=== PATIENT | male | born 1960 | race Caucasian/White ===

== ENCOUNTER 2018-10-07 15:01 | Outpatient (REF) | payer OTHER, SELFPAY ==
[2018-10-07 21:28] LABS: HCT 39.6 % (40.0-50.0); HGB 13.6 g/dL (13.5-17.5); Mean Corp. HGB Concentration 34.3 g/dL (32.0-36.0); Mean Corpuscular Volume 87.2 fL (80-95); Mean Platelet Volume 10.3 fL (8.0-11.0); Platelet Count 320 x1000/uL (130-400); RBC 4.54 m/cumm (4.50-6.00); RBC Distribution Width 12.6 % (11.8-14.1); White Blood Cell Count 10.36 k/cumm (4.4-10.8)
[2018-10-07 21:48] LABS: ALT 26 U/L (12-78); AST 12 U/L (15-37); Albumin 4.1 g/dL (3.4-5.0); Alkaline Phosphatase 77 U/L (46-116); Anion Gap 9.9 mmol/L (3-11); BUN 16 mg/dL (7-18); Bilirubin, Total 0.2 mg/dL (0.2-1.0); CO2 27.1 mmol/L (21.0-32.0); CREATININE 0.86 mg/dL (0.70-1.30); Calcium 9.3 mg/dL (8.5-10.1); Chloride 103 mmol/L (98-107); Cholesterol 169 mg/dL (50-200); Glucose 108 mg/dL (70-100); HDL Cholesterol 38 mg/dL (40-60); LDL CHOLESTEROL 113 mg/dL (<100); Magnesium 1.9 mg/dL (1.8-2.4); Potassium 4.2 mmol/L (3.5-5.1); Sodium 140 mmol/L (136-145); Total Protein 6.9 g/dL (6.4-8.2); Triglyceride 80 mg/dL (30-150)
== END 2018-10-07 15:21 ==
LOC: NCHCN 15:01
PROVIDERS: PCP Specialist/Technologist Athletic Trainer; Visit Provider Specialist/Technologist Athletic Trainer
DX: Z00.00 Encounter for general adult medical examination without abnormal findings (principal); Z13.228 Encounter for screening for other metabolic disorders; Z13.220 Encounter for screening for lipoid disorders; Z13.0 Encounter for screening for diseases of the blood and blood-forming organs and certain disorders involving the immune mechanism
CPT/HCPCS: 80053; 80061; 83721; 85027; 83735

== ENCOUNTER 2019-12-12 17:22 | Outpatient (REF) | payer BC, SELFPAY ==
[2019-12-12 20:26] LABS: Abs Immature Grans 0.03 k/cumm (0.0-0.09); Absolute Basophil Count 0.09 k/cumm (0.0-0.2); Absolute Eosinophil Count 0.45 k/cumm (0.0-0.7); Absolute Lymphocyte Count 2.92 k/cumm (1.2-3.4); Absolute Monocyte Count 0.61 k/cumm (0.11-0.7); Absolute Neutrophil Count 5.52 k/cumm (1.2-6.7); Basophils % 0.9; Eosinophils % 4.7; HCT 39.9 % (40.0-50.0); HGB 13.8 g/dL (13.5-17.5); Immature Grans % 0.3 %; Lymphocytes % 30.4; Mean Corp. HGB Concentration 34.6 g/dL (32.0-36.0); Mean Corpuscular Hemoglobin 30.6 pg (27.0-33.0); Mean Corpuscular Volume 88.5 fL (80-95); Mean Platelet Volume 10.4 fL (8.0-11.0); Monocytes % 6.3; Neutrophils % 57.4; Platelet Count 418 x1000/uL (130-400); RBC 4.51 m/cumm (4.50-6.00); RBC Distribution Width 12.4 % (11.8-14.1); White Blood Cell Count 9.62 k/cumm (4.4-10.8)
[2019-12-12 20:49] LABS: ALT 17 U/L (16-63); AST 15 U/L (15-37); Albumin 4.4 g/dL (3.4-5.0); Alkaline Phosphatase 61 U/L (46-116); Anion Gap 11.8 mmol/L (3-11); BUN 15 mg/dL (7-18); Bilirubin, Total 0.4 mg/dL (0.2-1.0); CO2 24.2 mmol/L (21.0-32.0); CREATININE 0.92 mg/dL (0.70-1.30); Calcium 9.4 mg/dL (8.5-10.1); Chloride 103 mmol/L (98-107); Glucose 94 mg/dL (74-106); Potassium 4.1 mmol/L (3.5-5.1); Sodium 139 mmol/L (136-145); TSH (W/Ref FT4) 2.38 uIU/mL (0.36-3.74)
[2019-12-12 23:53] LABS: Vitamin D 25 Total 41.8 ng/ml (30-100)
[2019-12-14 09:16] LABS: PSA, Screening 3.1 ng/mL (0.0-4.5)
== END 2019-12-12 17:42 ==
LOC: NCHCN 17:22
PROVIDERS: PCP Nurse Practitioner Psychiatric/Mental Health; Visit Provider Nurse Practitioner Psychiatric/Mental Health
DX: R73.03 Prediabetes (principal); R53.83 Other fatigue; Z12.5 Encounter for screening for malignant neoplasm of prostate; N40.0 Benign prostatic hyperplasia without lower urinary tract symptoms; Z00.00 Encounter for general adult medical examination without abnormal findings
CPT/HCPCS: 80053; 82306; 84153; 84443; 85025

== ENCOUNTER 2021-05-27 18:15 | Outpatient (REF) | payer BC, SELFPAY ==
[2021-05-27 20:30] LABS: BUN 10 mg/dL (7-18); CREATININE 0.9 mg/dL (0.70-1.30); Calcium 9.2 mg/dL (8.5-10.1); Chloride 106 mmol/L (98-107); Glucose 94 mg/dL (74-106); Potassium 4.2 mmol/L (3.5-5.1); Sodium 141 mmol/L (136-145)
[2021-05-27 20:37] LABS: Hemoglobin A1C 5.8 % (<5.7)
== END 2021-05-27 18:16 | disposition home or self-care (01) ==
LOC: NCHCN 18:15
PROVIDERS: PCP Nurse Practitioner Psychiatric/Mental Health; Visit Provider Nurse Practitioner Family
DX: R73.03 Prediabetes (principal); I10 Essential (primary) hypertension
CPT/HCPCS: 80048; 83036

== ENCOUNTER 2022-03-31 17:12 | Outpatient (REF) | payer BC, SELFPAY ==
[2022-03-31 19:12] LABS: Hemoglobin A1C 5.9 % (<5.7)
[2022-03-31 19:13] LABS: ALT 17 U/L (16-63); AST 15 U/L (15-37); Albumin 4.1 g/dL (3.4-5.0); Alkaline Phosphatase 54 U/L (46-116); BUN 13 mg/dL (7-18); Bilirubin, Total 0.5 mg/dL (0.2-1.0); CREATININE 0.9 mg/dL (0.70-1.30); Calcium 9.6 mg/dL (8.5-10.1); Chloride 105 mmol/L (98-107); Estimated GFR 96.57 (mL/min/1.73m2); Glucose 98 mg/dL (74-106); Potassium 4.5 mmol/L (3.5-5.1); Sodium 140 mmol/L (136-145)
[2022-04-01 18:22] LABS: PSA, Screening 3.3 ng/mL (<=4.5)
== END 2022-03-31 17:13 | disposition home or self-care (01) ==
LOC: NCHCN 17:12
PROVIDERS: PCP Nurse Practitioner Psychiatric/Mental Health; Visit Provider Nurse Practitioner Family
DX: Z00.00 Encounter for general adult medical examination without abnormal findings (principal); E78.1 Pure hyperglyceridemia; R73.03 Prediabetes; Z12.5 Encounter for screening for malignant neoplasm of prostate
CPT/HCPCS: 80053; 83721; 84153; 83036; 83718

== ENCOUNTER 2023-04-27 16:33 | Outpatient (REF) | payer BC, SELFPAY ==
[2023-04-27 18:47] LABS: Abs Immature Grans 0.02 10^3/uL (0.0-0.06); Absolute Basophil Count 0.11 10^3/uL (0.0-0.2); Absolute Lymphocyte Count 3.14 10^3/uL (1.2-3.4); Absolute Monocyte Count 0.57 10^3/uL (0.1-0.8); Absolute Neutrophil Count 3.91 10^3/uL (1.2-6.7); Basophils % 1.3; Eosinophils % 6.1; HCT 38.3 % (40.0-50.0); Immature Grans % 0.2; Lymphocytes % 38.1; MCH 30.1 pg (27.0-33.0); MCHC 33.9 % (32.0-36.0); MCV 89 fL (80-95); MPV 9.8 fL (8.0-11.0); Monocytes % 6.9; Neutrophils % 47.4; Platelet Count 337 10^3/uL (130-400); RBC 4.32 10^6/uL (4.36-5.78); RDW 12.3 % (11.8-14.1); RDW-SD 40.9 fL; WBC 8.25 10^3/uL (4.4-10.8)
[2023-04-27 19:08] LABS: Hemoglobin A1C 5.7 % (<5.7)
[2023-04-27 20:01] LABS: ALT 15 U/L (16-63); AST 13 U/L (15-37); Albumin 3.9 g/dL (3.4-5.0); Alkaline Phosphatase 66 U/L (46-116); Anion Gap 11.4 mmol/L (3-11); BUN 11 mg/dL (7-18); Bilirubin, Total 0.2 mg/dL (0.2-1.0); CO2 24.6 mmol/L (21.0-32.0); CREATININE 0.9 mg/dL (0.70-1.30); Calcium 9.2 mg/dL (8.5-10.1); Calculated LDL 103 mg/dL (<100); Chloride 105 mmol/L (98-107); Cholesterol 175 mg/dL (<200); Estimated GFR 95.97 (mL/min/1.73m2); Glucose 103 mg/dL (74-106); HDL Cholesterol 48 mg/dL (40-60); Potassium 4.1 mmol/L (3.5-5.1); Sodium 141 mmol/L (136-145); Total Protein 6.6 g/dL (6.4-8.2); Triglyceride 123 mg/dL (<150)
[2023-04-27 20:11] LABS: Uric Acid 5.2 mg/dL (3.5-7.2)
[2023-04-28 19:08] LABS: PSA, Screening 3.3 ng/mL (<=4.5)
== END 2023-04-27 16:34 | disposition home or self-care (01) ==
LOC: NCHCN 16:33
PROVIDERS: PCP Nurse Practitioner Psychiatric/Mental Health; Visit Provider Nurse Practitioner Family
DX: I10 Essential (primary) hypertension (principal); R73.03 Prediabetes; Z86.39 Personal history of other endocrine, nutritional and metabolic disease; Z12.5 Encounter for screening for malignant neoplasm of prostate
CPT/HCPCS: 80053; 80061; 84153; 83036; 84550; 85025

== ENCOUNTER 2023-07-16 18:15 | Outpatient (REF) | payer BC, SELFPAY ==
[2023-07-16 18:55] LABS: HCT 40.2 % (40.0-50.0); HGB 13.9 g/dL (13.5-17.5); MCHC 34.6 % (32.0-36.0); MCV 87 fL (80-95); MPV 9.7 fL (8.0-11.0); Platelet Count 420 10^3/uL (130-400); RBC 4.64 10^6/uL (4.36-5.78); RDW 12.2 % (11.8-14.1); RDW-SD 38.8 fL; WBC 8.79 10^3/uL (4.4-10.8)
[2023-07-16 18:57] LABS: ESR 2 mm/hr (0-20)
[2023-07-16 19:11] LABS: C-Reactive Protein 0.06 mg/dL (0.0-0.3)
--- OUTSIDE RECORDS SUMMARY | 2023-07-17 13:26 | XMS_ITS | Continuity of Care Document ---
Author Name Unknown Organization [facility] Address [address] [place] [address] Care Team Providers Care Contact Lens Molder Name Role Phone GARRET QUIJANO Primary Care Physician [phone] Encounter [facility] NBR [id number] Date(s): 09/22/22 - 09/22/22 [facility] [address] [place], [place] [address] Encounter Diagnosis Inguinal hernia, right(Discharge Diagnosis) - 09/22/22 Discharge Disposition: Home or Self Care Attending Physician: David Roblero MD Allergies, Adverse Reactions, Alerts Substance Reaction Severity Status Concerta Moderate Active Assessment and Plan Future Appointments Functional Status 09/22/22 Living Environment Home Environment No qualifying data available Other exposure to Infectious Disease Non e Medications aspirin 81 mg oral tablet, chewable 81 mg = 1 tab, Chewed, Daily, 0 Refill(s) Start Date: 04/30/22 Status: Ordered citalopram 20 mg oral tablet 20 mg = 1 tab, Oral, Daily, # 30 tab, 0 Refill(s) Start Date: 09/18/22 Status: Ordered gabapentin 100 mg oral capsule 100 mg = 1 cap, Oral, TID, TAKE 1 CAPSULE BY MOUTH THREE TIMES DAILY Start Date: 04/30/22 Status: Ordered gemfibrozil 600 mg oral tablet 600 mg = 1 tab, Oral, every evening, # 180 tab, 0 Refill(s) Start Date: 04/30/22 Status: Ordered ibuprofen 200 mg oral capsule 200 mg = 1 cap, Oral, BID, 0 Refill(s) Start Date: 09/18/22 Status: Ordered losartan 100 mg oral tablet 100 mg = 1 tab, Oral, Daily, TAKE 1 TABLET BY MOUTH EVERY DAY Start Date: 04/30/22 Status: Ordered metFORMIN 750 mg oral tablet, extended release 750 mg = 1 tab, Oral, Daily, # 30 tab, 0 Refill(s) Start Date: 04/30/22 Status: Ordered Metoprolol Tartrate 25 mg oral tablet 25 mg = 1 tab, Oral, BID, # 180 tab, 0 Refill(s) Start Date: 04/30/22 Status: Ordered mirtazapine 45 mg oral tablet 45 mg = 1 tab, Oral, every night at bedtime, TAKE 1 TABLET BY MOUTH AT BEDTIME Start Date: 04/30/22 Status: Ordered pravastatin 10 mg oral tablet 10 mg = 1 tab, Oral, every night at bedtime, # 30 tab, 0 Refill(s) Start Date: 04/30/22 Status: Ordered QUEtiapine 50 mg oral tablet 50 mg = 1 tab, Oral, TID, TAKE 1 TABLET BY MOUTH THREE TIMES DAILY Start Date: 04/30/22 Status: Ordered Problem List Condition Confirmation Course Effective Dates Status Health Status Informant Alcohol abuse Confirmed Active Anxiety disorder Confirmed Active Multiple nevi Confirmed Active BPH (benign prostatic hyperplasia) Confirmed Active Bipolar 1 disorder Confirmed Active Chronic low back pain Confirmed Active CAD (coronary artery disease) Confirmed Active Family history of diabetes mellitus Confirmed Active Hx of gout Confirmed Active Hemoptysis Confirmed Active Hip pain, left Confirmed Active Hypertension Confirmed Active Hypertriglyceridemia Confirmed Active Inguinal hernia Confirmed Active Groin pain Confirmed Active Epicondylitis, lateral Confirmed Active Opioid abuse Confirmed Active Prediabetes Confirmed Active Procedures Procedure Date Related Diagnosis Body Site Status History of shoulder surgery Completed Vital Signs Most recent to oldest [Reference Range]: 1 Temperature Temporal Artery [36-38 Deg C ] 35.8 Deg C *LOW* (09/22/22 3:07 PM) Apical Heart Rate [60-100 bpm] 70 bpm (09/22/22 3:07 PM) Blood Pressure [90-140/60-90 mmHg] 112/8 0mmHg (09/22/22 3:07 PM) Weight 88.7 kg (09/22/22 3:07 PM) Weight Measured (lbs) 195.55 lb (09/22/22 3:07 PM) [place] Body Weight Calculated 75.3 kg (09/22/22 3:07 PM) Height 180.34 cm (09/22/22 3:07 PM) Height/Length Measured (inches) 71 inch (09/22/22 3:07 PM) BSA Measured 2.11 m2 (09/22/22 3:07 PM) Body Mass Index 27.27 kg/m2 (09/22/22 3:07 PM) Social History Social History Type Response Tobacco Former tobacco user Tobacco Use:. 1 Sex 1quit 30 years ago Physician Outpatient Note * David Roblero MD: PERFORM Event Display: Office Clinic Note Physician Authored Date: [id number] MARCELL LOPEZ :1960 Age:62 years Sex:Male Visit Date:2022 Primary Care Physician: GARRET QUIJANO Chief Complaint Right inguinal hernia History of Present Illness Marcell Lopez is a a 62-year-old male referred by THERON Tyler for evaluation of a right inguinal hernia. ??Marcell reports that??for the past month he has been experiencing??a dull pain in his right groin that is worse with activities like bending or lifting.?? He has noticed a bulge in hisright groin as well. ??This??increases in size over the course of the day especially with??his physically demanding job at [employer].?? The pain is severe, he has to lie on the floor??or in bed to??help reduce the hernia. ??He has had no??history of incarceration or strangulation. ??He denies??vomiting or obstipation. ??He has mild nausea with this??pain.?? He notes no overlying skin changes. ??He has no history of hernia in the past.?He was seen by his primary care who ordered an ultrasound of his??pelvis which demonstrated the??hernia. ??He has had no prior abdominal surgeries.?? He denies other significant changes in his health. Review of Systems A 10 point review of systems was completed. ??Notable findings are documented above. Physical Exam Vitals & Measurements T:??35.8?C ??(Temporal Artery)?? HR:??70??(Apical)?? BP:??112/80?? SpO2:??98%?? HT:??180.34??cm?? WT:??88.7??kg?? BMI:??27.27?? BSA:??2.11?? General: No acute distress, pleasant, conversant CV: RRR Pulmonary: Regular breathing rate and effort Abdomen: Soft,??nontender, nondistended Right groin??moderate-sized??hernia which is reducible and mildly tender to deep palpation, no overlying skin changes Left groin no palpable mass or impulse on Valsalva.?? Nontender Bilateral testicle exam normal Extremities: Warm, no edema Assessment/Plan Inguinal hernia, right??K40.90 Marcell??Thierry is a 62-year-old male with a symptomatic right inguinal hernia. ??The nature of groin hernias, the potential complications, and the rationale and options for??treatment were reviewed. ??Recommend open right inguinal hernia repair with mesh. ??The risk, benefits, and alternatives to thisoperation were discussed in detail. ??The rationale for the use of mesh was explained.?? The expected postoperative recovery including activity restrictions, return to work, and postoperative pain control were outlined. ??Marcell demonstrated good understanding and agreement with this recommendation.?? He would like to schedule surgery for the next mutually convenient date. Thank you for the opportunity to participate in the care of?Bryant. ??A copy of this consultation will be faxed to THERON Tyler Ordered: Surgical Procedure Booking Request LTTL, 09/22/22 16:09:00 EDT, 10/09/22 10:00:00 EDT, K40.90, Inguinal hernia, right, Outpatient, Open Right Inguinal Herni, Primary Procedure, 90, General, 27, David Roblero MD, DX code: K40.90 Open Right Inguinal Hernia Repair with Mesh CPT Codes: 49... ?? Problem List/Past Medical History Ongoing Alcohol abuse Anxiety disorder Bipolar 1 disorder BPH (benign prostatic hyperplasia) CAD (coronary artery disease) Chronic low back pain Epicondylitis, lateral Family history of diabetes mellitus Groin pain Hemoptysis Hip pain, left Hx of gout Hypertension Hypertriglyceridemia Inguinal hernia Multiple nevi Opioid abuse Prediabetes Historical No qualifying data Procedure/Surgical History ???History of shoulder surgery Medications aspirin 81 mg oral tablet, chewable, 81 mg= 1 tab, Chewed, Daily citalopram 20 mg oral tablet, 20 mg= 1 tab, Oral, Daily gabapentin 100 mg oral capsule, 100 mg= 1 cap, Oral, TID gemfibrozil 600 mg oral tablet, 600 mg= 1 tab, Oral, every evening ibuprofen 200 mg oral capsule, 200 mg= 1 cap, Oral, BID losartan 100 mg oral tablet, 100 mg= 1 tab, Oral, Daily metFORMIN 750 mg oral tablet, extended release, 750 mg= 1 tab, Oral, Daily Metoprolol Tartrate 25 mg oral tablet, 25 mg= 1 tab, Oral, BID mirtazapine 45 mg oral tablet, 45 mg= 1 tab, Oral, every night at bedtime pravastatin 10 mg oral tablet, 10 mg= 1 tab, Oral, every night at bedtime QUEtiapine 50 mg oral tablet, 50 mg= 1 tab, Oral, TID Allergies Concerta Social History Alcohol Current, Beer, Wine, Liquor, 1-2 times per year Electronic Cigarette/Vaping Electronic Cigarette Use: Never. Substance Use Current, Marijuana Tobacco Former tobacco user Tobacco Use:.- Comments: quit 30 years ago Electronically Signed on 09/22/22 04:24 PM David Roblero MD Patient Care team information Care Team Personnel Name: GARRET QUIJANO Position: No Access Member Role: Primary Care Physician Address: Address: [address] [place] [address] [address] [place] [address]- Care Team Related Persons Name: MARCELL LOPEZ Address: Home
--- OUTSIDE RECORDS SUMMARY | 2023-07-17 13:26 | XMS_ITS | Continuity of Care Document ---
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 Name Role Phone GARRET YEBOAH Primary Care Physic tea Encounter [facility] NBR [id number] Date(s): 02/18/23 - 02/18/23 [facility] [address] [place] [address]- [place] Encounter Diagnosis S/P right inguinal hernia repair(Discharge Diagnosis) - 02/18/23 Personal history of other diseases of the digestive system(Discharge Diagnosis) - 02/18/23 Discharge Disposition: Home or Self Care Attending Physician: David Roblero MD Referring Physician: GARRET YEBOAH Allergies, Adverse Reactions, Alerts Substance Reaction Severity Status Concerta High blood pressure Moderate Active Functional Status 02/18/23 Living Environment Home Environment No qualifying data [...] 200 mg = 1 cap, Oral, BID, PRN as needed for pain, 0 Refill(s) Start Date: 09/18/22 Status: Ordered [...] Course Effective Dates Status Health Status Informant Anxiety disorder Confirmed Active Multiple nevi Confirmed Active BPH (benign prostatic hyperplasia) Confirmed Active Bipolar 1 disorder Confirmed Active Chronic low back pain Confirmed Active CAD (coronary artery disease) Confirmed Active Diabetes mellitus Confirmed Active Family history of diabetes mellitus Confirmed Active Hx of gout Confirmed Active Hip pain, left Confirmed Active Hypertension Confirmed Active Hypertriglyceridemia Confirmed Active Inguinal hernia Confirmed Active Groin pain Confirmed Active Epicondylitis, lateral Confirmed Active Procedures Procedure Date Related Diagnosis Body Site Status Repair Hernia Inguinal (Right) 1 01/22/23 Completed Colonoscopy Completed Dupuytren operation Compl eted Finger operation 2 Comple zena History of shoulder surgery Completed 1auto-populated from documented surgical case 25th finger Vital Signs Most recent to oldest [Reference Range]: 1 Temperature Temporal Artery [36-38 Deg C ] 36.4 Deg C (02/18/23 9:03 AM) Apical Heart Rate [60-100 bpm] 78 bpm (02/18/23 9:03 AM) Blood Pressure [90-140/60-90 mmHg] 162/6 4mmHg *HI* (02/18/23 9:03 AM) Weight 88.1 kg (02/18/23 9:03 AM) Weight Measured (lbs) 194.227 lb (02/18/23 9:03 AM) [place] Body Weight Calculated 74.992 kg (02/18/23 9:03 AM) Height 180 cm (02/18/23 9:03 AM) Height/Length Measured (inches) 70.87 in ch (02/18/23 9:03 AM) BSA Measured 2.1 m2 (02/18/23 9:03 AM) Body Mass Index 27.19 kg/m2 (02/18/23 9:03 AM) Social History Social History Type Response Tobacco Former tobacco user Tobacco Use:. 1 Sex 1quit 30 years ago Implantable Device List Procedure Provider Procedure Date Device Type Site Repair, initial inguinal hernia, (younger than 37 weeks gestation at ), performed from up to 50 weeks postconception age, with or without hydrocelectomy; reducible David Roblero MD 01/22/23 Non Biological Groin Device Identifier Serial Number Lot or Batch Number Manufacturing Date Expiration Date Distinct Identification Code MRI Safety Implantable Status Assigning Authority Unknown Unknown [employer] Unknown 03/27/27 Unknown Unknown Active Unkn own Physician Outpatient Note * David Roblero MD: PERFORM Event Display: Office Clinic Note Physician Authored Date: [id number] MARCELL LOPEZ :1960 Age:62 years Sex:Male Visit Date:02/18/2023 Primary Care Physician: GARRET YBEOAH Chief Complaint Right inguinal hernia follow-up History of Present Illness Marcell??Thierry is a 62-year-old male who presents in follow-up 4 weeks s/p open right inguinal hernia repair with mesh.?? Marcell reports no??ongoing pain. ??He has been recovering well postoperatively. ??He has had??no fevers or chills. ??He denies redness or erythema from his incision. ??He has been avoiding heavy lifting as instructed. ??He is back at work at [employer]??on light duty.?? He denies other significant changes in his health. Physical Exam Vitals & Measurements T:??36.4?C ??(Temporal Artery)?? HR:??78??(Apical)?? BP:??162/64?? SpO2:??98%?? HT:??180??cm?? WT:??88.1??kg?? BMI:??27.19?? BSA:??2.1?? General: No acute distress, pleasant, conversant CV: RRR Pulmonary: Regular breathing rate and effort Abdomen: Soft, nondistended, nontender Right groin incision healing well??without erythema or drainage. ??No palpable mass or??impulse on Valsalva Assessment/Plan 1.??S/P right inguinal hernia repair??Z98.890 Marcell Lopez is a 62-year-old male??4 weeks s/p open right inguinal hernia repair with mesh. ??He hasrecovered well postoperatively.?? We discussed slowly resuming his usual activities. ??He may return to work??with a 50 pound weight lifting restriction for the next 2 weeks. ??After which he may resume usual activities without restriction.?? Marcell demonstrated good understanding agreed with these recommendations. ??He can call my office anytime with any further questions or concerns. ??I will send a note over to his employer's??specifying these restrictions. Personal history of other diseases of the digestive system??Z87.19 Problem List/Past Medical History Ongoing Anxiety disorder Bipolar 1 disorder BPH (benign prostatic hyperplasia) CAD (coronary artery disease) Chronic low back pain Diabetes mellitus Epicondylitis, lateral Family history of diabetes mellitus Groin pain Hip pain, left Hx of gout Hypertension Hypertriglyceridemia Inguinal hernia Multiple nevi Historical Alcohol abuse Hemoptysis Opioid abuse Procedure/Surgical History ???Repair Hernia Inguinal (Right) (01/22/2023)???Colonoscopy???Dupuytren operation???Finger operation???History of shoulder surgery Medications aspirin 81 mg oral tablet, chewable, 81 mg= 1 tab, Chewed, Daily citalopram 20 mg oral tablet, 20 mg= 1 tab, Oral, Daily gabapentin 100 mg oral capsule, 100 mg= 1 cap, Oral, TID gemfibrozil 600 mg oral tablet, 600 mg= 1 tab, Oral, every evening ibuprofen 200 mg oral capsule, 200 mg= 1 cap, Oral, BID, PRN losartan 100 mg oral tablet, 100 mg= [...] 50 mg= 1 tab, Oral, TID Allergies Concerta??(High blood pressure) Social History Alcohol Current, Beer, Wine, Liquor, 1-2 times per year Electronic Cigarette/Vaping Electronic Cigarette Use: Never. Substance Use Current, Marijuana, 1-2 times per year Tobacco Former tobacco user Tobacco Use:.- Comments: quit 30 years ago Electronically Signed on 02/18/23 09:59 AM David Roblero MD Patient Care team information Care Team Personnel Name: GARRET YEBOAH Position: No Access Member Role: Primary Care Physician Address: Address: [address] [place] [address] [address] [place] [address]- Care Team Related Persons Name: MARCELL LOPEZ Address: Home
--- OUTSIDE RECORDS SUMMARY | 2023-07-17 13:26 | XMS_ITS | Continuity of Care Document ---
Author Name Unknown Organization [facility] Address [address] [place] [id number] Care Team Providers Care Hat Body Inspector Name Role Phone GARRET YEBOAH Primary Care Physic tea Encounter LTTL_UT FIN NBR [id number] Date(s): 01/22/23 - 01/22/[address] [id number]- Encounter Diagnosis Inguinal hernia, right(Discharge Diagnosis) - 01/22/23 Discharge Disposition: Home f/u Internal Provider Attending Physician: David Roblero MD Admitting Physician: David Roblero MD Referring Physician: GARRET YEBOAH Allergies, Adverse Reactions, Alerts Substance Reaction Severity Status Concerta High blood pressure Moderate Active Assessment and Plan Future Appointments Functional Status 01/22/23 Anti-Embolism Device Activity: Removed Anti-Embolism Device Removal Reason: Dis continued Anti-Embolism Site Condition: No complic ations 01/22/23 Other exposure to Infectious Disease Non e [...] AT BEDTIME Start Date: 04/30/22 Status: Ordered oxyCODONE 5 mg oral tablet 5 mg = 1 tab, Oral, every 6 hr, PRN pain, breakthrough, X 3 days, # 7 tab, 0 Refill(s), 01/25/23 11:30:00 EDT, Pharmacy: [facility], 180, cm, 01/19/23 11:32:00 EDT, Height/Length Dosing, 86, kg, 01/19/23 11:32:00 EDT, Weight Dosing Start Date: 01/22/23 Stop Date: 01/25/23 Status: Ordered pravastatin 10 mg oral tablet [...] 1auto-populated from documented surgical case 25th finger Results Laboratory List Name Date Glucose POCT 01/22/23 Most recent to oldest [Reference Range]: 1 Glucose POC 112 *NA* (01/22/23 9:52 AM) Vital Signs Most recent to oldest [Reference Range]: 1 2 3 Temperature Temporal Artery [36-38 Deg C] 36.3 Deg C (01/22/23 11:31 AM) 36.7 Deg C (01/22/23 9:33 AM) Temperature Temporal Artery (DegF) [97.3-100 Deg F] 97.34 Deg F (01/22/23 11:31 AM) 98.06 Deg F (01/22/23 9:33 AM) Peripheral Pulse Rate [60-100 bpm] 61 bpm (01/22/23 12:26 PM) 62 bpm (01/22/23 12:15 PM) 74 bpm (01/22/23 12:00 PM) Blood Pressure [90-140/60-90 mmHg] 148/74mmHg *HI* (01/22/23 12:26 PM) 149/77mmHg *HI* (01/22/23 12:15 PM) 157/81mmHg *HI* (01/22/23 12:00 PM) Mean Arterial Pressure, Cuff [65-140 mmHg] 99 mmHg (01/22/23 12:26 PM) 101 mmHg (01/22/23 12:15 PM) 106 mmHg (01/22/23 12:00 PM) Mean Arterial Pressure Cuff 98 mmHg (01/22/23 12:15 PM) 104 mmHg (01/22/23 12:00 PM) 102 mmHg (01/22/23 11:45 AM) Blood Pressure Location Left arm (01/22/23 11:31 AM) Blood Pressure Method Automatic (01/22/23 11:31 AM) Weight 86.000 kg (01/19/23 11:23 AM) Weight Dosing 86.000 kg (01/19/23 11:23 AM) Height 180.000 cm (01/19/23 11:23 AM) Height/Length Dosing 180.000 cm (01/19/23 11:23 AM) Social History Social History Type Response Tobacco Former tobacco user Tobacco Use:. 1 Sex 1quit 30 years ago Implantable Device List Procedure Provider Procedure Date Device Type Site Repair, initial inguinal hernia, infant (younger than 37 weeks gestation at ), performed from up to 50 weeks postconception age, with or without hydrocelectomy; reducible David Roblero MD 01/22/23 Non Biological Groin Device Identifier Serial Number Lot or Batch Number Manufacturing Date Expiration Date Distinct Identification Code MRI Safety Implantable Status Assigning Authority Unknown Unknown [employer] Unknown 03/27/27 Unknown Unknown Active [facility] own [facility] Discharge Instructions Patient Education 01/22/2023 09:02:13 Open Hernia Repair, Adult, Care After Open Hernia Repair, Adult, Care After The following information offers guidance on how to care for yourself after your procedure. Your health care provider may also give you more specific instructions. If you have problems or questions, contact your health care provider. What can I expect after the procedure? After the procedure, it is common to have: ??? Mild discomfort. ??? Slight bruising. ??? Minor swelling. ??? Pain in the abdomen. ??? A small amount of blood from the incision. Follow these instructions at home: Medicines ??? Take blyi-etg-nlpmcxp and prescription medicines only as told by your health care provider. ??? Ask your health care provider if the medicine prescribed to you: ??? Requires you to avoid driving or using machinery. ??? Can cause constipation. You may need to take these actions to prevent or treat constipation: ??? Drink enough fluid to keep your urine pale yellow. ??? Take ahdm-dyb-fzfsgyf or prescription medicines. ??? Eat foods that are high in fiber, such as beans, whole grains, and fresh fruits and vegetables. ??? Limit foods that are high in fat and processed sugars, such as fried or sweet foods. ??? If you were prescribed an antibiotic medicine, take it as told by your health care provider. Donot stop using the antibiotic even if you start to feel better. Incision care ??? Follow instructions from your health care provider about how to take care of your incision. Make sure you: ??? Wash your hands with soap and water for at least 20 seconds before and after you change your bandage (dressing). If soap and water are not available, use hand executive casino host. ??? Change your dressing as told by your health care provider. ??? Leave stitches (sutures), skin glue, or adhesive strips in place. These skin closures may need to stay in place for 2 weeks or longer. If adhesive strip edges start to loosen and curl up, you maytrim the loose edges. Do not remove adhesive strips completely unless your health care provider tells you to do that. ??? Check your incision area every day for signs of infection. Check for: ??? More redness, swelling, or pain. ??? More fluid or blood. ??? Warmth. ??? Pus or a bad smell. ??? Wear loose, soft clothing while your incision heals. Activity ??? Rest as told by your health care provider. ??? Do not lift anything that is heavier than 10 lb (4.5 kg), or the limit that you are told, untilyour health care provider says that it is safe. ??? Do not play contact sports until your health care provider says that this is safe. ??? If you were given a sedative during the procedure, it can affect you for several hours. Do not drive or operate machinery until your health care provider says that it is safe. ??? Return to your normal activities as told by your health care provider. Ask your health care provider what activities are safe for you. General instructions ??? Do not take baths, swim, or use a hot tub until your health care provider approves. Ask your health care provider if you may take showers. You may only be allowed to take sponge baths. ??? Hold a pillow over your abdomen when you cough or sneeze. This helps with pain. ??? Do not use any products that contain nicotine or tobacco. These products include cigarettes, chewing tobacco, and vaping devices, such as e-cigarettes. If you need help quitting, ask your health care provider. ??? Keep all follow-up visits. This is important. Contact a health care provider if: ??? You have any of these signs of infection: ??? More redness, swelling, or pain around your incision. ??? More fluid or blood coming from your incision. ??? Warmth coming from your incision. ??? Pus or a bad smell coming from your incision. ??? A fever or chills. ??? You have blood in your stool (feces). ??? You have not had a bowel movement in 2???3 days. ??? Your pain is not controlled with medicine. Get help right away if: ??? You have chest pain or shortness of breath. ??? You feel faint or light-headed. ??? You have severe pain. ??? You vomit and your pain is worse. ??? You have pain, swelling, or redness in a leg. These symptoms may represent a serious problem that is an emergency. Do not wait to see if the symptoms will go away. Get medical help right away. Call your local emergency services (911 in the [place] Do not drive yourself to the hospital. Summary ??? After an open hernia repair, it is common to have mild discomfort, slight bruising, and minor swelling. ??? Follow instructions from your health care provider about how to take care of your incision. Check every day for signs of infection. ??? Do not lift heavy objects or play contact sports until your health care provider says it is safe. ??? Return to your normal activities as told by your health care provider. Ask your health care provider what activities are safe for you. This information is not intended to replace advice given to you by your health care provider. Make sure you discuss any questions you have with your health care provider. Document Revised: 01/28/2021 Document Reviewed: 01/28/2021 [employer] Patient Education ?? 2022 [employer]. Follow Up Care 01/07/2023 15:53:22 With:David Roblero MD Address: [facility] [address] [place], [place] [id number]- When:02/18/2023 08:00:00 Discharge instructions * Divya Chapa RN: PERFORM Event Display: Discharge Instructions Authored Date: [id number] MARCELL LOPEZ :1960 Age:62 years Sex:Male Visit Date:01/22/2023 Primary Care Physician: KYRIE CUSTODIAL FOREMAN-, [facility] Discharge Instructions We would like to thank you for allowing us to assist you with your healthcare needs. The following includes patient education materials and information regarding your injury/illness. Your Next Steps Instructions From Your Care Team Plan to rest and relax today after your procedure/operation. Even after minor surgery you may feel drowsy or tired for several hours. You may also have a sore throat and muscle aches.??DO NOT??drink alcohol after anesthesia or while taking pain medications. You should not drive any vehicle or operate machinery until your doctor says it???s safe.??DO NOT??make any major decisions, sign contracts, etc. for 24 hours. ?? Activity: ?Rest today, tomorrow resume your usual activity. ?Lift no more than 10 pounds until your follow up appointment. ?? Diet: ?Advance to previous diet as tolerated. ?? Medications: ?Continue your regular medications ?Prescription given to patient:??oxycodone 5 mg every 6 hours as needed for pain not controlled with Tylenol and ibuprofen ?Last dose of pain ??medication given at hospital:?Over the counter medications: Tylenol and/or Ibuprofen every 6 hours when needed for pain. ?Last dose of over the counter medication given at the hospital: ?? Dressing: ?Your incision is closed with glue (derma christina) DO NOT pick or scrub at it. ?Apply ice pack over dressing site for 20 mins on/20 mins off for the first several days. ?? Special Instructions: ?You may take a shower after 24 hours. ?No bathing, soaking or swimming for 2 weeks. ?You may drive after ALL pain medications are stopped. ? YOU SHOULD CALL YOUR DOCTOR??AT ??FOR ANY OF THE FOLLOWING ?Fever of 101 or higher. ?Pain that does not lessen with the pain medication prescribed. ?Cloudy or foul smelling drainage from the incision. ?Redness, warmth and firmness around the incision. ?Increased numbness or tingling. ?Bleeding or continuous oozing that saturates the bandage and does not stop after applying pressure to incision for 20 minutes. ?Increased swelling of fingers or toes, or severe tightness of bandage not relieved with elevation of limb above the level of your heart. ?Pale blue or cold fingers/toes or nail beds as compared with the opposite side. ?? IF UNABLE TO REACH YOUR DOCTOR GO TO YOUR NEAREST EMERGENCY ROOM ?? Recommended Treatments for Opioid Induced Constipation ?? Dosage Schedule Drug Brand Names Dose Daily Senna-docusate 8.5-5mg per tablet Senokot 2 tablets by mouth 2 times per day (Hold for loose stool) As Needed Magnesium Hydroxide Milk of Magnesia 30mL by mouth 2 times per day as needed As Needed Polyethylene Glycol Miralax 17 grams dissolved in 8 ounces of water, juice or tea once daily as needed As Needed Bisacodyl?? Dulcolax 10mg by mouth once a day as needed for constipation As Needed Phosphate enema Fleet enema 120mL rectally once a day as needed for constipation As Needed Magnesium citrate ?? 150 to 300 mL (1.745g/30mL solution) by mouth once a day as needed for constipation ? Patient/Responsible democrat signature:? Date/Time: ?? RN signature: ? Date/Time: ?? This document was electronically generated via computerized provider electronic court recorder (CPOE) by the ordering physician,??David Roblero MD Discharge Orders Discharge Patient Instructions, Rest today, tomorrow resume your usual activity Discharge Patient Instructions, Continue regular medications Discharge Patient Instructions, Lift restrictions of 10 pounds until follow-up appointment Discharge Patient Instructions, No bathing, soaking, or swimming for 10 days Discharge Patient Instructions, Apply ice pack for 20 minutes on and 20 minutes off for first several days Scheduled Future Appointments Thursday 9:00 AM EDT ?? With: David Roblero MD Where: [facility] General Surgery Status: Confirmed Follow Up Appointments Follow Up with??David Roblero MD When:??02/18/2023 09:00 AM EDT Where: [facility] [address] [place], [place] [id number]- Medications What How Much When Instructions Next Dose New oxyCODONE (oxyCODONE 5 mg oral tablet) 1 tab Oral (given by mouth) Every 6 hours as needed for pain, breakthrough Duration: 3 Days Pickup at [facility] Unchanged aspirin (aspirin 81 mg oral tablet, chewable) 1 tab Chewed Every day Unchanged citalopram (citalopram 20 mg oral tablet) 1 tab Oral (given by mouth) Every day Unchanged gabapentin (gabapentin 100 mg oral capsule) 1 Capsules Oral (given by mouth) 3 times a day TAKE 1 CAPSULE BY MOUTH THREE TIMES DAILY ?? Unchanged gemfibrozil (gemfibrozil 600 mg oral tablet) 1 tab Oral (given by mouth) Every evening Unchanged ibuprofen (ibuprofen 200 mg oral capsule) 1 Capsules Oral (given by mouth) 2 times a day as needed for as needed for pain Unchanged losartan (losartan 100 mg oral tablet) 1 tab Oral (given by mouth) Every day TAKE 1 TABLET BY MOUTH EVERY DAY ?? Unchanged metFORMIN (metFORMIN 750 mg oral tablet, extended release) 1 tab Oral (given by mouth) Every day Unchanged metoprolol (Metoprolol Tartrate 25 mg oral tablet) 1 tab Oral (given by mouth) 2 times a day Unchanged mirtazapine (mirtazapine 45 mg oral tablet) 1 tab Oral (given by mouth) Every night at bedtime TAKE 1 TABLET BY MOUTH AT BEDTIME ?? Unchanged pravastatin (pravastatin 10 mg oral tablet) 1 tab Oral (given by mouth) Every night at bedtime Unchanged QUEtiapine (QUEtiapine 50 mg oral tablet) 1 tab Oral (given by mouth) 3 times a day TAKE 1 TABLET BY MOUTH THREE TIMES DAILY ?? Pharmacy Information [facility]: [address], [place] [phone] Your Summary Your Care Team Admitting Physician - David Roblero MD Attending Physician - David Roblero MD Primary Care Physician - GARRET YEBOAH Referring Physician - GARRET YEBOAH Your Diagnosis Inguinal hernia, right Problems Ongoing - Any problem that you are currently receiving treatment for. Anxiety disorder Bipolar 1 disorder BPH (benign prostatic hyperplasia) CAD (coronary artery disease) Chronic low back pain Diabetes mellitus Epicondylitis, lateral Family history of diabetes mellitus Groin pain Hip pain, left Hx of gout Hypertension Hypertriglyceridemia Inguinal hernia Multiple nevi Historical - Any problem that you are no longer receiving treatment for. Alcohol abuse Hemoptysis Opioid abuse Procedures Performed ???Repair Hernia Inguinal (Right) (01/22/2023)???Colonoscopy???Dupuytren operation???Finger operation Tests Performed/Pending Glucose POCT Discharge Vitals Temperature??(Temporal Artery) 97.3 ??F (36.3 ??C) Heart Rate??(Peripheral) 76 Blood Pressure?? 146/86?? Allergies Concerta??(High blood pressure) Devices Implanted/Removed This Visit Notice: You have devices implanted this visit that may not be MRI compatible. Implanted Repair Hernia Inguinal Groin ???MESH PROLENE 2.4 X 5.4 NON-ABS 01/22/2023 Education Materials Open Hernia Repair, Adult, Care After The following information offers guidance on how to care for yourself after your procedure. Your health care provider may also give you more specific instructions. If you have problems or questions, contact your health care provider. What can I expect after the procedure? After the procedure, it is common to have: ? Mild discomfort. ? Slight bruising. ? Minor swelling. ? Pain in the abdomen. ? A small amount of blood from the incision. Follow these instructions at home: Medicines ? Take imbm-vdr-xaseqez and prescription medicines only as told by your health care provider. ? Ask your health care provider if the medicine prescribed to you: ? Requires you to avoid driving or using machinery. ? Can cause constipation. You may need to take these actions to prevent or treat constipation: ? Drink enough fluid to keep your urine pale yellow. ? Take zgnc-gzo-drcifna or prescription medicines. ? Eat foods that are high in fiber, such as beans, whole grains, and fresh fruits and vegetables. ? Limit foods that are high in fat and processed sugars, such as fried or sweet foods. ? If you were prescribed an antibiotic medicine, take it as told by your health care provider. Do notstop using the antibiotic even if you start to feel better. Incision care ? Follow instructions from your health care provider about how to take care of your incision. Make sure you: ? Wash your hands with soap and water for at least 20 seconds before and after you change your bandage (dressing). If soap and water are not available, use hand executive casino host. ? Change your dressing as told by your health care provider. ? Leave stitches (sutures), skin glue, or adhesive strips in place. These skin closures may need to stay in place for 2 weeks or longer. If adhesive strip edges start to loosen and curl up, you may trim the loose edges. Do not remove adhesive strips completely unless your health care provider tells you to do that. ? Check your incision area every day for signs of infection. Check for: ? More redness, swelling, or pain. ? More fluid or blood. ? Warmth. ? Pus or a bad smell. ? Wear loose, soft clothing while your incision heals. Activity ? Rest as told by your health care provider. ? Do not lift anything that is heavier than 10 lb (4.5 kg), or the limit that you are told, until your health care provider says that it is safe. ? Do not play contact sports until your health care provider says that this is safe. ? If you were given a sedative during the procedure, it can affect you for several hours. Do not drive or operate machinery until your health care provider says that it is safe. ? Return to your normal activities as told by your health care provider. Ask your health care provider what activities are safe for you. General instructions ? Do not take baths, swim, or use a hot tub until your health care provider approves. Ask your healthcare provider if you may take showers. You may only be allowed to take sponge baths. ? Hold a pillow over your abdomen when you cough or sneeze. This helps with pain. ? Do not use any products that contain nicotine or tobacco. These products include cigarettes, chewing tobacco, and vaping devices, such as e-cigarettes. If you need help quitting, ask your health careprovider. ? Keep all follow-up visits. This is important. Contact a health care provider if: ? You have any of these signs of infection: ? More redness, swelling, or pain around your incision. ? More fluid or blood coming from your incision. ? Warmth coming from your incision. ? Pus or a bad smell coming from your incision. ? A fever or chills. ? You have blood in your stool (feces). ? You have not had a bowel movement in 2???3 days. ? Your pain is not controlled with medicine. Get help right away if: ? You have chest pain or shortness of breath. ? You feel faint or light-headed. ? You have severe pain. ? You vomit and your pain is worse. ? You have pain, swelling, or redness in a leg. These symptoms may represent a serious problem that is an emergency. Do not wait to see if the symptoms will go away. Get medical help right away. Call your local emergency services (911 in the [place] Do not drive yourself to the hospital. Summary ? After an open hernia repair, it is common to have mild discomfort, slight bruising, and minor swelling. ? Follow instructions from your health care provider about how to take care of your incision. Check every day for signs of infection. ? Do not lift heavy objects or play contact sports until your health care provider says it is safe. ? Return to your normal activities as told by your health care provider. Ask your health care provider what activities are safe for you. This information is not intended to replace advice given to you by your health care provider. Make sure you discuss any questions you have with your health care provider. Document Revised: 01/28/2021 Document Reviewed: 01/28/2021 Elsevier Patient Education ?? 2022 Elsevier Inc. Patient Name:MARCELL LOPEZ I have received this information and my questions have been answered. 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
--- OUTSIDE RECORDS SUMMARY | 2023-07-17 13:26 | XMS_ITS | Continuity of Care Document ---
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 Role Phone KYRIE CRUMP-BCGARRET Primary Care Physic tea Encounter [facility] NBR [id number] Date(s): 01/07/23 - 01/07/23 [facility] [address] [place] [address]- Encounter Diagnosis Right inguinal hernia(Discharge Diagnosis) - 01/07/23 Discharge Disposition: Home or Self Care Attending Physician: David Roblero MD Referring Physician: David Roblero MD Allergies, Adverse Reactions, Alerts Substance Reaction Severity Status Concerta Moderate Active Assessment and Plan Future Appointments Functional Status 01/07/23 Living Environment Home Environment No qualifying data [...] Temperature Temporal Artery [36-38 Deg C ] 36.0 Deg C (01/07/23 2:09 PM) Apical Heart Rate [60-100 bpm] 71 bpm (01/07/23 2:09 PM) Blood Pressure [90-140/60-90 mmHg] 134/7 6mmHg (01/07/23 2:09 PM) Weight 86.1 kg (01/07/23 2:09 PM) Weight Measured (lbs) 189.818 lb (01/07/23 2:09 PM) [place] Body Weight Calculated 75.3 kg (01/07/23 2:09 PM) Height 180.34 cm (01/07/23 2:09 PM) Height/Length Measured (inches) 71 inch (01/07/23 2:09 PM) BSA Measured 2.08 m2 (01/07/23 2:09 PM) Body Mass Index 26.47 kg/m2 (01/07/23 2:09 PM) Social History Social History Type Response Tobacco Former tobacco user Tobacco Use:. 1 Sex 1quit 30 years ago Physician Outpatient Note * Osbaldo ACOSTA, David Brewster: PERFORM Event Display: Office Clinic Note Physician Authored Date: [id number] MARCELL LOPEZ :1960 Age:62 years Sex:Male Visit Date:01/07/2023 Primary Care Physician: GARRET YEBOAH History of Present Illness Marcell Lopez is a 62-year-old male with a symptomatic right inguinal hernia who presents in follow-up. ??I last evaluated Marcell in August 2022. ??At the time he was having??frequent episodes of pain in his right groin related to a??moderate size right inguinal hernia.?? Since evaluated last, he had planned to undergo surgery??however had to??reschedule due to financial concerns.?? He is now??started with his finances and would like to proceed with repair. ??He has had no significant changes in his health since last in clinic. ??His right inguinal??hernia??is larger in size??since evaluated last. ??He has continued to work??at the [employer], but has to take frequent breaks??to alleviate the disc omfort he experiences over the course of the day. ??His pain is worse with standing for prolonged periods and in the morning.?? He has had no obstructive symptoms or incarceration. Review of Systems A 10 point review of systems was completed. ??Notable findings recommended above. Physical Exam Vitals & Measurements T:??36.0?C ??(Temporal Artery)?? HR:??71??(Apical)?? BP:??134/76?? SpO2:??99%?? HT:??180.34??cm?? WT:??86.1??kg?? BMI:??26.47?? BSA:??2.08?? General: No acute distress, pleasant, conversant CV: RRR Pulmonary: Regular breathing rate and effort Abdomen: Soft, nondistended, nontender Right groin??with??large palpable??reducible??inguinal scrotal hernia??without overlying skin changes.?? Mildly tender to palpation Left groin no palpable mass or hernia Normal bilateral testicle exam Extremities: No edema Neuro: Grossly intact Assessment/Plan 1.??Right inguinal hernia??K40.90 Marcell??Thierry is a 62-year-old male with a symptomatic right inguinal hernia. ??Recommend open right inguinal hernia repair with mesh. ??The risk, benefits, and alternatives to this operation were reviewed. ??The expected postoperative recovery including active restrictions, return to work, postoperative pain control were outlined.?? Marcell demonstrated good understanding and agreement with this recommendation. ??He would like to schedule??surgery for the next mutually convenient date.?? Can call my office any time with any further questions or concerns in the interim. Problem List/Past Medical History Ongoing Alcohol abuse [...] quit 30 years ago Electronically Signed on 01/07/23 03:05 PM David Roblero MD Patient Care team information Care Team Personnel Name: GARRET YEBOAH Position: No Access Member Role: Primary Care Physician Address: Address: [address] [place] [address] [address] [place] [address]- Care Team Related Persons Name: MARCELL LOPEZ Address: Home
--- OUTSIDE RECORDS SUMMARY | 2023-07-17 13:26 | XMS_ITS | Continuity of Care Document ---
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 Role Phone GARRET YEBOAH Primary Care Physic tea Encounter [facility] NBR [id number] Date(s): 05/11/23 - 05/11/[address] [address]- Discharge Disposition: Home or Self Care Attending Physician: GARRET YEBOAH Admitting Physician: GARRET YEBOAH Referring Physician: GARRET YEBOAH Allergies, Adverse Reactions, Alerts Substance Reaction Severity Status Concerta High blood pressure Moderate Active Medications aspirin 81 mg oral tablet, chewable [...] from documented surgical case 25th finger Results Radiology Reports * Exam Date Time Procedure Performing Provider Status 05/11/23 10:[address] Chest w/o Contrast Omkar Dahl; Auth (Verified) Notes: (CT Chest w/o Contrast) Reason For Exam: HEMOPTYSIS CT Chest w/o Contrast EXAM DESCRIPTION: CT Chest w/o Contrast 05/11/2023 INDICATION: HEMOPTYSIS TECHNIQUE: All CT scans at this facility use at least one of these dose optimization techniques: Automated exposure control; mA and/or kV adjustment per patient size (includes targeted exams where dose is matched to clinical indication); or iterative reconstruction. Technique: Axial CT images of the chest without intravenous contrast administration COMPARISON: CT angiography chest examination from 04/30/2022 FINDINGS: Mediastinal evaluation is limited by lack of IV contrast. No mediastinal mass or adenopathy is identified. No axillary adenopathy. No pericardial effusion. Normal caliber thoracic aorta. Scattered atherosclerotic calcifications involving the thoracic aorta and coronary arteries No focal infiltrate or pulmonary mass. Minimal subsegmental atelectasis or scarring in the posterior aspect of both lower lobes. No significant emphysematous changes. No central endobronchial filling defect identified No pleural effusion or pneumothorax The visualized upper abdomen demonstrates a normal unenhanced CT appearance except for regional vascular calcification. No suspicious regional osseous lesions. Spondylotic changes in the visualized spinal axis. IMPRESSION: No focal infiltrate or pulmonary mass with minimal subsegmental atelectasis or scarring in the posterior aspect of both lower lobes. JOB #: [id number] Final Signed by: Abdifatah Salazar MD Signed (Electronic Signature): 05/11/2023 11:20 am Social History Social History Type Response Tobacco [...] Unknown 03/27/27 Unknown Unknown Active Unkn own Patient Care team information Care Team Personnel Name: GARRET YEBOAH Position: No Access Member Role: Primary Care Physician Address: Address: [address] [place], [place] [id number] [place] [address] Care Team Related Persons Name: MARCELL LOPEZ
--- OUTSIDE RECORDS SUMMARY | 2023-07-17 13:27 | XMS_ITS | Continuity of Care Document ---
Author Name Unknown Organization [facility] Address [address] [place] [address] Encounter [facility] FIN NBR [id number] Date(s): 09/09/22 - 09/09/[address] [address]- Discharge Disposition: Home or Self Care Attending Physician: GARRET QUIJANO Admitting Physician: GARRET QUIJANO Referring Physician: Unavailable, Physician Allergies, Adverse Reactions, Alerts No Known Allergies Medications aspirin 81 mg oral tablet, chewable 81 mg = 1 tab, Chewed, Daily, 0 Refill(s) Start Date: 04/30/22 Status: Ordered gabapentin 100 mg oral capsule 100 mg = 1 cap, Oral, TID, TAKE 1 CAPSULE BY MOUTH THREE TIMES DAILY Start Date: 04/30/22 Status: Ordered gemfibrozil 600 mg oral tablet 600 mg = 1 tab, Oral, every evening, # 180 tab, 0 Refill(s) Start Date: 04/30/22 Status: Ordered losartan 100 mg oral tablet [...] TIMES DAILY Start Date: 04/30/22 Status: Ordered Results Radiology Reports * Exam Date Time Procedure Performing Provider Status 09/09/22 3:33 PM [employer] [facility] Buzz, Clarence; Auth (V erified) Notes: ( [facility]) Reason For Exam: RT INGUINAL PAIN [facility] EXAM DESCRIPTION: [facility] 09/09/2022 INDICATION: RT INGUINAL PAIN TECHNIQUE: Grayscale ultrasound examination of the right inguinal region was performed in the vicinity of clinical concern including static and cine clip images with Valsalva maneuver. COMPARISON: None FINDINGS: Abdominal wall defect in the right inguinal region with ovoid intermediate echogenicity hernia sac extending into the right inguinal subcutaneous soft tissues. Abdominal wall defect measures approximately 5 mm. Hernia sac measures approximately 3.1 x 1.1 cm. No abnormal fluid collection identified in this region. IMPRESSION: Small right inguinal hernia as described above. JOB #: [id number] Final Signed by: Abdifatah Salazar MD Signed (Electronic Signature): 09/09/2022 3:57 pm Social History Social History Type Response Tobacco Never tobacco user T obacco Use:. Sex US Pelvis limited * Abdifatah Salazar MD: VERIFY, VERIFY Event Display: Report EXAM DESCRIPTION: [employer] [facility] 09/09/2022 INDICATION: RT INGUINAL PAIN TECHNIQUE: Grayscale ultrasound examination of the right inguinal region was performed in the vicinity of clinical concern including static and cine clip images with Valsalva maneuver. COMPARISON: None FINDINGS: Abdominal wall defect in the right inguinal region with ovoid intermediate echogenicity hernia sac extending into the right inguinal subcutaneous soft tissues. Abdominal wall defect measures approximately 5 mm. Hernia sac measures approximately 3.1 x 1.1 cm. No abnormal fluid collection identified in this region. IMPRESSION: Small right inguinal hernia as described above. JOB #: [id number] Final Signed by: Abdifatah Salazar MD Signed (Electronic Signature): 09/09/2022 3:57 pm Patient Care team information Care Team Related Persons Name: MARCELL LOPEZ Address: Home
--- OUTSIDE RECORDS SUMMARY | 2023-07-17 13:27 | XMS_ITS | Continuity of Care Document ---
Author Name Unknown Organization [facility] Address [address] [place] [address] Encounter [facility] [id number] Date(s): 04/30/22 - 04/30/[address] [id number] Encounter Diagnosis Atrial fibrillation with RVR(Discharge Diagnosis) - 04/30/22 Discharge Disposition: Left Against Medical Advice Attending Physician: Lee Aaron MD Admitting Physician: Lee Aaron MD Allergies, Adverse Reactions, Alerts No Known Allergies [...] TIMES DAILY Start Date: 04/30/22 Status: Ordered Mental Status 04/30/22 Eye Opening Response [place] Spontaneous ly Best Verbal Response [place] Oriented Best Motor Response [place] Obeys comman ds [place] Coma Score 15 Results Laboratory List Name Date SARS-CoV-2 (COVID-19) PCR (GeneXpert) BNP 04/30/22 CBC w/ Diff 04/30/22 Comprehensive Metabolic Panel (CMP) 04/30 D-Dimer 04/30/22 Free T4 04/30/22 Magnesium Level 04/30/22 Thyroid Stimulating Hormone 04/30/22 Troponin-I 04/30/22 Automated Diff 04/30/22 Most recent to oldest [Reference Range]: 1 WBC [4.8-10.8 K/mcL] 9.3 K/mcL (04/30/22 9:06 AM) RBC [4.20-6.10 Million/mcL] 4.52 Million /mcL (04/30/22 9:06 AM) Neutro Auto [42.2-75.2 %] 65.7 % (04/30/22 9:06 AM) Lymph Auto [20.5-51.1 %] 24.0 % (04/30/22 9:06 AM) [place] Auto [1.7-9.3 %] 6.1 % (04/30/22 9:06 AM) Basophil Auto [0.0-0.2 %] 1.1 % *HI* (04/30/22 9:06 AM) BUN [8-26 mg/dL] 17 mg/dL (04/30/22 9:06 AM) Glucose Level [74-106 mg/dL] 137 mg/dL *HI* (04/30/22 9:06 AM) Potassium Level [3.5-5.1 mmol/L] 3.7 mmo l/L (04/30/22 9:06 AM) Baso Absolute [0.0-0.2 K/mcL] 0.1 K/mcL (04/30/22 9:06 AM) MCV [80.0-99.0 fL] 88.9 fL (04/30/22 9:06 AM) T4 Free [0.61-1.12 ng/dL] 0.65 ng/dL (04/30/22 9:06 AM) AST [15-41 IntlUnit/L] 15 IntlUnit/L (04/30/22 9:06 AM) ALT [17-63 IntlUnit/L] 13 IntlUnit/L *LOW* (04/30/22 9:06 AM) MCHC [32.0-36.0 g/dL] 34.1 g/dL (04/30/22 9:06 AM) Osmolality [275-295 mOsm/kg] 279 mOsm/kg (04/30/22 9:06 AM) Troponin-I [<=0.05 ng/mL] <0.01 ng/mL (04/30/22 9:06 AM) Sodium Level [134-143 mmol/L] 138 mmol/L (04/30/22 9:06 AM) Lymph Absolute [1.2-3.4 K/mcL] 2.2 K/mcL (04/30/22 9:06 AM) Hct [37.0-52.0 %] 40.2 % (04/30/22 9:06 AM) Calcium Level [8.9-10.3 mg/dL] 9.2 mg/dL (04/30/22 9:06 AM) [place] Absolute [0.1-0.6 K/mcL] 0.6 K/mcL (04/30/22 9:06 AM) Albumin Level [3.5-5.0 g/dL] 4.3 g/dL (04/30/22 9:06 AM) Protein Total [6.5-8.1 g/dL] 7.0 g/dL (04/30/22 9:06 AM) MCH [27.0-31.0 pg] 30.3 pg (04/30/22 9:06 AM) Magnesium Level [1.8-2.5 mg/dL] 2.3 mg/d L (04/30/22 9:06 AM) Neutro Absolute [1.4-6.5 K/mcL] 6.1 K/mc L (04/30/22 9:06 AM) Bilirubin Total [0.2-1.2 mg/dL] 0.9 mg/d L (04/30/22 9:06 AM) Hgb [12.0-18.0 g/dL] 13.7 g/dL (04/30/22 9:06 AM) Alk Phos [38-130 IntlUnit/L] 43 IntlUnit /L (04/30/22 9:06 AM) MPV [7.4-10.4 fL] 10.1 fL (04/30/22 9:06 AM) Platelets [130-400 K/mcL] 333 K/mcL (04/30/22 9:06 AM) CO2 [22-32 mmol/L] 25 mmol/L (04/30/22 9:06 AM) Eos Absolute [0.0-0.2 K/mcL] 0.3 K/mcL *HI* (04/30/22 9:06 AM) TSH [0.45-5.33 mIntlUnit/mL] 1.80 mIntlU nit/mL (04/30/22 9:06 AM) eGFR Non-AA 99 *NA* (04/30/22 9:06 AM) eGFR AA 99 *NA* (04/30/22 9:06 AM) BNP [<=100 pg/mL] 264 pg/mL *HI* (04/30/22 9:06 AM) Chloride Level [98-111 mmol/L] 104 mmol/ L (04/30/22 9:06 AM) RDW-CV [11.5-14.5 %] 12.2 % (04/30/22 9:06 AM) A/G Ratio 1.6 *NA* (04/30/22 9:06 AM) BUN/Creat Ratio [8.0-20.0] 20.5 *HI* (04/30/22 9:06 AM) Globulin 2.7 *NA* (04/30/22 9:06 AM) Imm Gran Absolute 0.03 *NA* (04/30/22 9:06 AM) Imm Gran Auto [0.0-0.5 %] 0.3 % (04/30/22 9:06 AM) NRBC Auto 0 *NA* (04/30/22 9:06 AM) NRBC Absolute 0 *NA* (04/30/22 9:06 AM) SARS-CoV-2 (COVID-19) PCR (GeneXpert) [N egative] Negative (04/30/22 11:08 AM) Creatinine Level [0.61-1.24 mg/dL] 0.83 mg/dL (04/30/22 9:06 AM) Employed in healthcare? No *NA* (04/30/22 11:08 AM) Symptomatic as defined by CDC? No *NA* (04/30/22 11:08 AM) Hospitalized due to COVID-19? No *NA* (04/30/22 11:08 AM) In ICU? No *NA* (04/30/22 11:08 AM) Group care resident? No *NA* (04/30/22 11:08 AM) status? Not *NA* (04/30/22 11:08 AM) Anion Gap [3.0-12.0] 9.0 (04/30/22 9:06 AM) D Dimer, (Quant.) [<=500 ng/mL] 450 ng/m L (04/30/22 9:06 AM) Eos, Auto [0.00-3.00 %] 2.80 % (04/30/22 9:06 AM) Radiology Reports * Exam Date Time Procedure Performing Provider Status 04/30/22 10:[address] Angio Chest Radha Rivera; Cooper (Verified) Notes: (CT Angio Chest) Reason For Exam: chest pain CT Angio Chest EXAM DESCRIPTION: CT Angio Chest 04/30/2022 INDICATION: CHEST PAIN TECHNIQUE: All CT scans at this facility use at least one of these dose optimization techniques: Automated exposure control; mA and/or kV adjustment per patient size (includes targeted exams where dose is matched to clinical indication); or iterative reconstruction. CT angiography examination of the chest with thin section axial images including sagittal and coronal MPR images performed on a separate workstation under concurrent supervision. 100 cc of Isovue 370 contrast was utilized COMPARISON: AP chest radiograph from 04/30/2022, 0910 hours FINDINGS: Normal opacification of the right ventricular outflow tract, main pulmonary arteries and segmental pulmonary arteries with no evidence of pulmonary embolism. No focal consolidation or pulmonary mass. Minimal patchy areas of ground-glass attenuation infiltrate are noted in both upper lobes as well as the medial aspect of the right middle lobe and portions of the right lower lobe. Findings are of uncertain chronicity and may reflect chronic process or mild interstitial/viral pneumonitis. No significant emphysematous changes. No central endobronchial filling defect identified No pleural effusion or pneumothorax. No mediastinal, hilar or axillary adenopathy. No pericardial effusion. Normal caliber thoracic aorta. No mass or adenopathy in the visualized upper abdomen. No suspicious regional osseous lesions. IMPRESSION: No evidence of pulmonary embolism. Mild patchy areas of ground-glass attenuation infiltrate bilaterally as detailed above of uncertain chronicity. Findings may reflect chronic process or mild interstitial/viral pneumonitis. No focal consolidation or pulmonary mass No mediastinal, hilar or axillary adenopathy. JOB #: [id number] Final Signed by: Abdifatah Salazar MD Signed (Electronic Signature): 04/30/2022 10:32 am * Exam Date Time Procedure Performing Provider Status 04/30/22 9:15 AM XR Chest 1 View Shannan Rosales (Verified) Notes: (XR Chest 1 View) Reason For Exam: pain XR Chest 1 View EXAM DESCRIPTION: XR Chest 1 View 04/30/2022 INDICATION: PAIN COMPARISON: None IMPRESSION: Clear lungs with no focal infiltrate or pulmonary edema. Normal cardiomediastinal contour. Minimal right CP angle blunting which may reflect mild right pleural effusion or pleural reaction. No significant left pleural effusion. No pneumothorax Spondylotic changes of the dorsal spine. JOB #: [id number] Final Signed by: Abdifatah Salazar MD Signed (Electronic Signature): 04/30/2022 9:16 am Vital Signs Most recent to oldest [Reference Range]: 1 2 3 Temperature Temporal Artery [36-38 Deg C] 36.5 Deg C (04/30/22 8:18 AM) Peripheral Pulse Rate [60-100 bpm] 61 bpm (04/30/22 12:21 PM) 73 bpm (04/30/22 12:12 PM) 60 bpm (04/30/22 11:00 AM) Heart Rate Monitored [60-100 bpm] 75 bpm (04/30/22 12:21 PM) 76 bpm (04/30/22 12:12 PM) 70 bpm (11/2/22 11:00 AM) Respiratory Rate [12-24 br/min] 18 br/min (04/30/22 12:21 PM) 12 br/min (04/30/22 12:12 PM) 15 br/min (04/30/22 11:00 AM) Blood Pressure [90-140/60-90 mmHg] 172/100mmHg *HI* (04/30/22 12:21 PM) 154/91mmHg *HI* (04/30/22 12:12 PM) 154/92mmHg *HI* (04/30/22 11:00 AM) Mean Arterial Pressure Cuff 122 mmHg (04/30/22 12:21 PM) 109 mmHg (04/30/22 12:12 PM) 111 mmHg (04/30/22 11:00 AM) Weight Dosing 91.00 kg (04/30/22 8:42 AM) Weight Estimated 91.00 kg (04/30/22 8:18 AM) Height/Length Dosing 180.000 cm (04/30/22 8:42 AM) Height/Length Estimated 180.000 cm (04/30/22 8:18 AM) Social History Social History Type Response Tobacco Never tobacco user T obacco Use:. Sex XR Chest Single view * Abdifatah Salazar MD: VERIFY, VERIFY Event Display: Report EXAM DESCRIPTION: XR Chest 1 View 04/30/2022 INDICATION: PAIN COMPARISON: None IMPRESSION: Clear lungs with no focal infiltrate or pulmonary edema. Normal cardiomediastinal contour. Minimal right CP angle blunting which may reflect mild right pleural effusion or pleural reaction. No significant left pleural effusion. No pneumothorax Spondylotic changes of the dorsal spine. JOB #: [id number] Final Signed by: Abdifatah Salazar MD Signed (Electronic Signature): 04/30/2022 9:16 am CTA Chest vessels W contrast IV * Abdifatah Salazar MD: VERIFY, VERIFY Event Display: Report EXAM DESCRIPTION: CT Angio Chest 04/30/2022 INDICATION: CHEST PAIN TECHNIQUE: All CT scans at this facility use at least one of these dose optimization techniques: Automated exposure control; mA and/or kV adjustment per patient size (includes targeted exams where dose is matched to clinical indication); or iterative reconstruction. CT angiography examination of the chest with thin section axial images including sagittal and coronal MPR images performed on a separate workstation under concurrent supervision. 100 cc of Isovue 370 contrast was utilized COMPARISON: AP chest radiograph from 04/30/2022, 0910 hours FINDINGS: Normal opacification of the right ventricular outflow tract, main pulmonary arteries and segmental pulmonary arteries with no evidence of pulmonary embolism. No focal consolidation or pulmonary mass. Minimal patchy areas of ground-glass attenuation infiltrate are noted in both upper lobes as well as the medial aspect of the right middle lobe and portions of the right lower lobe. Findings are of uncertain chronicity and may reflect chronic process or mild interstitial/viral pneumonitis. No significant emphysematous changes. No central endobronchial filling defect identified No pleural effusion or pneumothorax. No mediastinal, hilar or axillary adenopathy. No pericardial effusion. Normal caliber thoracic aorta. No mass or adenopathy in the visualized upper abdomen. No suspicious regional osseous lesions. IMPRESSION: No evidence of pulmonary embolism. Mild patchy areas of ground-glass attenuation infiltrate bilaterally as detailed above of uncertain chronicity. Findings may reflect chronic process or mild interstitial/viral pneumonitis. No focal consolidation or pulmonary mass No mediastinal, hilar or axillary adenopathy. JOB #: [id number] Final Signed by: Abdifatah Salazar MD Signed (Electronic Signature): 04/30/2022 10:32 am
[2023-07-17 18:34] LABS: Rheumatoid Factor <8.6 IU/mL (<12.0)
== END 2023-07-16 18:16 | disposition home or self-care (01) ==
LOC: NCHCN 18:15
PROVIDERS: PCP Nurse Practitioner Psychiatric/Mental Health; Visit Provider Nurse Practitioner Family
DX: M79.641 Pain in right hand (principal)
CPT/HCPCS: 85027; 85652; 86140; 86431